=== PATIENT | female | born 2000 | race Caucasian/White ===

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

== ENCOUNTER 2018-04-08 16:47 | Emergency (ER) | payer OTHER ==
[2018-04-08] MEDS ORDERED: ONDANSETRON 4 MG/2 ML VIAL ONE (16:52)
--- NOTE | 2018-04-08 16:53 | EDPHY ---
HPI/HX/ROS/PE/MDM Narrative: CHIEF COMPLAINT: Overdose / Suicide attempt HISTORY OF PRESENT ILLNESS: This patient is a 17 y/o female with history of depression arriving via EMS following a suicide attempt by overdose of an unknown substance. The patient recently arrived home from studying abroad for the last year and recently began taking a new medication. Patient was discovered unresponsive with a suicide note at bedside. A loom technician is present with a copy of this note. On EMS arrival, the patient was unresponsive to painful stimuli with pinpoint pupils, RR 20, HR 100, BP 103/88, BGL 82. EMS administered 0.5mg Narcan with no change. After an additional 0.5mg Narcan, the patient became more responsive. The patient vomited upon her arrival here in the emergency department. Per EMS crews, there may be opioid medications in the patient's home of an unknown quantity. Her mother is en route to the emergency department at this time. REVIEW OF SYSTEMS: Unable to obtain due to patient presentation. PAST MEDICAL HISTORY: Depression. SOCIAL HISTORY: College student. Otherwise unknown social history. VITAL SIGNS: Reviewed by me GENERAL: Responsive to painful stimuli. HEENT: Atraumatic. Eyes: 5mm pupils, reactive. No icterus, no injection. No nystagmus. Mouth: moist mucous membranes. Positive gag reflex. No erythema or lesions. Neck: supple with no adenopathy. LUNGS: Clear to auscultation bilaterally, no wheezes, rhonchi or rales. CARDIAC: Regular tachycardia, no rubs, murmurs or gallops. ABDOMEN: Soft, nondistended, bowel sounds normal. BACK: No focal abnormalities. EXTREMITIES: No trauma. No edema. Passive range of motion is normal throughout. NEURO: Responsive to painful stimuli. Protecting herself with her arm. Moving all extremities. Turns head away from me. Gag reflex intact. SKIN: Warm and dry, no rash. PSYCHIATRIC: Unable to assess. Portions of this note were transcribed by a remote medical coder. I personally performed a history, physical exam, medical decision making, and confirmed accuracy of information the transcribed note. ED Course: 16:47 Met EMS at bedside 16:55 Mother at bedside. Patient had been recently prescribed medications for depression. When mother arrived home today, patient was sleeping. Mother noticed a suicide note on the bed. Medications in the home include Ambien, Oxycodone, Flexeril, Flagyl. Per patient's father, contacted by her mother on the phone, the patient recently picked up a prescription for Vyvanse from [facility]. Prescribed by Cristina Land. If the patient is on antidepressant it is unknown at this time. 17:40 patient noted to be intermittently tachycardic and somewhat hypotensive. Administered an additional 2mg IV Narcan. No change in the patient's condition or mentation. Patient's vitals otherwise stable currently. 18:30 Reassessed. Patient remains responsive to painful stimuli. She does not open her eyes to command. Patient has occasional contractures of her upper extremities, which seem to be associated with borderline hypotension and tachycardia. At this point her mother reports that she (the mother) had a prescription for 90 800 mg ibuprofen tablets of which she had taken none. Pill bottle is empty. Urine tox screen is positive only for amphetamines. Alcohol 44. Tylenol negative, salicylates negative, liver function tests normal, BUN and creatinine normal. 18:[address] Nowak, radiologist. CT head negative for acute processes. 19:00 Spoke with patient's mother. Plan to admit the patient. Patient seen by the hospitalist service, Dr. Cas Samson. Again the patient has had several episodes of tachycardia, hypotension, associated with stiffening of her upper extremities and patient does not withdrawal to painful stimuli when this is occurring. These last about 10-20 seconds. Concern for whether these are seizures. Additional labs include lactic acid of 2.7. Patient's QT is borderline prolonged. Repeat Chem 7 ordered. Serum osmoles ordered. 19:33 Consulted with Poison Control. Case #[id number] [facility] recommends continued observation, observed for renal insufficiency secondary to significant ibuprofen overdose, benzodiazepines as needed for any seizures, and to avoid Keppra at this time. Patient's syndrome felt to potentially be related to Ambien more so than overdose of ibuprofen. Patient's course discussed with Dr. Montalvo, [facility]. Patient to be transferred to [facility] via critical care. She will be admitted to the ICU for continuous EEG monitoring. Repeat labs drawn shortly before the patient's transfer demonstrated lactic acid is increasing, now 3.3 despite supportive care. Critical care time spent by me, Dr. Rivero exclusively with this patient was 45 minutes, exclusive of PA time and exclusive of procedures. The organ system at risk was neurologic and I gave IV fluids, Narcan, Ativan, consulted with poison Center, consult a Neurology, and obtain imaging studies to prevent worsening of the patients condition. Critical care time included obtaining history, performing a physical exam, bedside monitoring of interventions, collecting and interpreting tests and discussion with consultants but not including time spent performing procedures. Patient was transferred via critical care to [facility] for ongoing EEG monitoring. MDM: After the history was obtained and physical exam performed, the following differential for the patient's altered mental status was considered included but was not limited to alcohol intoxication, opiate overdose, antidepressant overdose, sedative overdose, hypoglycemia, electrolyte disturbances, intracranial hemorrhage, anoxic brain injury, tumor, stroke, or TIA. - Data Points Imaging Results: CT Head: Impression: 1. No significant intracranial abnormality seen. If symptoms worsen, additional imaging may be necessary. Findings discussed with Roxie Rivero MD at 18:41 hour, 04/08/2018. CXR: Impression: Normal chest x-ray. Dictated By: Shashank Nowak MD Imaging: Discussed imaging studies w/ train caller Radiologist Laboratory Results: Laboratory Results 04/08/18 16:50 04/08/18 20:12 Medications Given: Discontinued Medications Sodium Chloride (Ns) 1,000 mls @ 0 mls/hr IV ONCE ONE PRN Reason: Wide Open Stop: 04/08/18 16:57 Last Admin: 04/08/18 16:57 Dose: 1,000 mls Sodium Chloride (Ns) 1,000 mls @ 0 mls/hr IV ONCE ONE; Wide Open PRN Reason: Protocol Stop: 04/08/18 17:05 Last Admin: 04/08/18 17:53 Dose: 1,000 mls Levetiracetam 750 mg/ Sodium (Chloride) 50 mls @ 200 mls/hr IV BID ONE Stop: 04/08/18 19:42 Last Admin: 04/08/18 19:42 Dose: Not Given Magnesium Sulfate/Dextrose (Magnesium Sulf 1 Gm (Premix)) 100 mls @ 100 mls/hr IV ONCE ONE Stop: 04/08/18 20:27 Last Admin: 04/08/18 19:42 Dose: Not Given Sodium Chloride (Ns) 1,000 mls @ 0 mls/hr IV ONCE ONE PRN Reason: Wide Open Stop: 04/08/18 20:08 Last Admin: 04/08/18 20:20 Dose: 1,000 mls Lorazepam (Ativan Injection) 1 mg IVP EDNOW ONE Stop: 04/08/18 19:34 Last Admin: 04/08/18 19:42 Dose: 1 mg Naloxone HCl (Narcan) 2 mg IVP EDNOW ONE Stop: 04/08/18 17:38 Last Admin: 04/08/18 17:49 Dose: 2 mg Ondansetron HCl (Zofran) 4 mg IVP EDNOW ONE Stop: 04/08/18 16:57 Last Admin: 04/08/18 16:57 Dose: 4 mg General Initial Vital Signs: Initial Vital Signs Temperature (C) 36.2 C 04/08/18 16:55 Heart Rate 130 H 04/08/18 16:55 Respiratory Rate 14 04/08/18 16:55 Blood Pressure 106/50 L 04/08/18 16:55 O2 Sat (%) 98 04/08/18 16:55 O2 Delivery Mode Room Air Allergies/Adverse Reactions: Penicillins Allergy (Verified 04/08/18 18:41) Departure - Departure Disposition: [facility] Clinical Impression: Suicidal ideation Overdose Qualifiers: Encounter type: initial encounter Injury intent: intentional self-harm Qualified Code(s): T50.902A - Poisoning by unspecified drugs, medicaments and biological substances, intentional self-harm, initial encounter Altered mental status Qualifiers: Altered mental status type: somnolence Qualified Code(s): R40.0 - Somnolence Condition: Serious Referrals: Patient,NotPresent [Unknown] - As per Instructions Report Scribed for: Roxie Rivero Report Scribed by: Mariah Ferguson Date of Report: 04/08/18 Time of Report: 18:30
[2018-04-08] MEDS ORDERED: ONDANSETRON 4 MG/2 ML VIAL IVP ONE (16:56)
[2018-04-08] MEDS ORDERED: NS 1,000 ML IV ONE ×3 (16:56→20:07)
--- NOTE | 2018-04-08 17:00 | CPEKG ---
Heart Rate: 100 RR Interval: 600 P-R Interval: 204 QRSD Interval: 88 QT Interval: 384 QTC Interval: 496 P [place]: 19 QRS [place]: 56 T Wave [place]: 41 EKG Severity - ABNORMAL ECG - EKG Impression: SINUS TACHYCARDIA EKG Impression: PROLONGED QT INTERVAL Electronically Signed By: Frederick Holland 10-Apr-2018 08:59:30
[2018-04-08 17:20] LABS: PLATELET COUNT 333 10^3/uL (150-400)
[2018-04-08] MEDS ORDERED: NALOXONE HCL 0.4 MG/ML INJ IVP ONE (17:37)
[2018-04-08] MEDS ORDERED: NALOXONE HCL 2 MG/2 ML SYR IVP ONE (17:51)
[2018-04-08 18:33] LABS: INR 0.9 (0.83-1.16); PROTIME(PATIENT) 12.4 SEC (12.0-15.0)
[2018-04-08 18:47] LABS: CREATINE KINASE 263 IU/L (0-156)
[2018-04-08] MEDS ORDERED: MAGNESIUM SULF 1 GM/DEXTROSE 100 ML IV ONE (19:28)
[2018-04-08] MEDS ORDERED: levETIRAcetam 750 MG in NS (SYRINGE) 50 ML IV ONE (19:28)
[2018-04-08] MEDS ORDERED: MAGNESIUM SULF 1 GM/DEXTROSE 100 ML BAG IV ONE (19:32)
[2018-04-08] MEDS ORDERED: LORazepam 2 MG/ML INJ IVP ONE (19:33)
--- NOTE | 2018-04-08 19:42 | PDCONSULT ---
Orthophotography Technician Note: PCP: Dr. Colette Winn Primary Psychiatrist: Dr. Land CC: Acute encephalopathy HPI: 17 yo F p/w acute encephalopathy characterized as complete unresponsiveness. Patient was last seen at her baseline on the day prior to presentation, and she stayed overnight at a cabin [place] in the [facility], returning to her mother's home sometime after 12:30 p.m. On the day of presentation. [place] at her mother's house, and sometime between 12:30 p.m. And 5:00 p.m., the patient allegedly ingested unknown substances, although there are 2 empty bottles of ibuprofen 600-800mg, approximately 90 tabs were previously in each of these bottles, and there is also an empty bottle of Ambien 10 mg, unknown amount of tabs previously in the bottle. The patient also has a prescription for Vyvanse, and the bottle was not on her person when she was found by family, unresponsive. The patient's mother's pillbox which contains oxycodone, Flexeril, other medications, appears to be untouched. EMS was contacted, they administered a total of 1 mg of Narcan, with very minimal responsiveness. The patient reportedly had constricted pupils on evaluation and was demonstrating some posturing. There is also evidence that she may have vomited once prior to arrival. A suicide note was found on her person, which indicated that the patient felt tired, scared, sorry, and was intentionally attempting to end her life. This presentation occurs in the context of the patient recently returning from a year of studying abroad in [place]. The patient returned to [place] approximately 1 week ago, and was experiencing symptoms including lethargy, hopelessness, body-image anxiety, and reportedly had what her mother described as a full on anxiety attack on the day prior to presentation. Since the patient has a long history of depression and mental health issues, the patient' s family arranged for a psychiatry appointment during this past week, and she was prescribed Vyvanse 3 days prior to this presentation. The patient had been interacting with her brother, reportedly went rock climbing with him recently, did not engage in drinking alcohol or over ingest marijuana. The patient has reportedly been having some anxiety regarding an upcoming visit by her [place] boyfriend, particularly regarding herself image. She recently saw a videotape operator for some collagen treatment of old self-inflicted cut maldonado from many years ago. Otherwise, the patient's family have not noted any recent self- inflicted harm. Review of systems: Unresponsiveness, depression, anxiety, hopelessness, fatigue , all other 10 point review of systems are otherwise negative per family Past medical history: Depression, anxiety, previous cutting behavior, no previous suicide attempts, GI symptoms recently receiving outpatient workup her primary care provider office Past surgical history: None Home medications: Vyvanse x3 days, prior to that patient had been off of all mental health medications for approximately 1 year, and prior to that she had been on Pristiq Social history: Smokes marijuana regularly, alcohol very rarely, no other illegal drug use, recently returned to [place] from here studying abroad in [place] , prior to that the patient had been residing with her mother business information analyst, and prior to that her father, parents are , patient has a brother who lives locally Family history: Mother with reported suicide attempt, underlying anxiety and mental health issues, potentially bipolar, although she reports that this diagnosis was induced by behavioral health medications; no family history of sudden cardiac or seizure disorder Allergies: Penicillin induces rashes Physical exam: Systolic blood pressure initially 106, subsequently 86, heart rate 130, subsequently 90, respirations 14, SpO2 98% on 2 L nasal cannula, temperature 36.2 degrees General-alert awake oriented times 0, no apparent distress Neuro-2+ bilateral patellae reflexes, withdraws from painful stimuli, intermittent upper extremity posturing with muscular rigidity and seemingly unresponsive to painful stimuli during these moments, does not follow any commands Psych-unable to obtain secondary to encephalopathy Cardiac-tachycardic, regular rhythm, bounding pulse Resp-clear to auscultation bilaterally, no labored breathing Gastrointestinal-abdomen is nondistended, nontender, bowel sounds present Skin-no cut maldonado on the wrists or forearms Eyes-constricted pupils, paradoxical dilation with light, then constricted responsively Ear nose and throat-tacky mucous membranes, minimal secretions on the tongue Data: Anion gap 20, tox screen positive for amphetamines but negative for ASA/ Tylenol, alcohol levels 44, liver panel unremarkable, creatinine 0.9, serum bicarbonate 20, potassium 4.7, serum sodium 146, glucose 82, white blood cell count 9700, hemoglobin 14.1 Imaging: Head CT demonstrating no intracranial hemorrhage, EKG demonstrating sinus tachycardia with a QTC between 450 in 500 (personally interpreted) Outside records: 04/04/2018 laboratory values demonstrating celiac panel, IgG, IgA, all pending Assessment: 17-year-old female presenting with acute encephalopathy secondary to intentional polypharmacy overdose Plan: 1. Acute encephalopathy. Evidenced by global brain dysfunction characterized as unresponsiveness, only responsive to painful stimuli, no evidence of structural abnormality on head CT, suspect that the underlying etiology is a combination of polypharmacy and metabolic effects of acidosis, with anion gap of 20 -discussed with Dr. Roxie Rivero, she reports the patient has a gag reflex, the patient is currently saturating well on room air, patient does not require intubation at this time -that being said, the patient's dense encephalopathy with minimal responsiveness , and occasional posturing makes the possibility of subclinical seizures very difficult to grossly obtain based on physical observation, and the patient warrants continuous EEG monitoring for her own safety so that possible seizures can be appropriately treated with antiepileptic medications as well as IV benzodiazepines, which may require intubation given that it is anticipated she will experienced even deeper sedation with these medications -because the patient requires continuous EEG monitoring, I recommended to Dr. Rivero that the patient should be transferred to [facility] ICU -in the interim, the patient's intermittent posturing and concomitant tachycardia certainly seems suggestive of intermittent comma self-limited seizures, and we have agreed to administer Keppra 750 mg IV 1 time and gauge effect, pending this medication is advisable after Dr. Rivero' discussion with poison Control 2. Polypharmacy overdose. Acute, intentional, suicide attempt with suicide note has been obtained, patient is currently on M1 hold -if the patient has in fact taken upwards of 100 tabs of ibuprofen as well as Ambien, it is possible that she may be experiencing dense encephalopathic affects thereof as well as acidosis and QT prolongation -recommend that poison Control be notified immediately for further recommendations -as the ingestion was anywhere up to 5 hr prior to arrival, the utility of nasogastric tube and suctioning seems limited -monitor QT on telemetry -monitor anion gap -give 1 g of IV magnesium now -patient will require mental health evaluation after she is medically cleared 3. Hypernatremia. Acute, requiring IV fluids, continue to monitor 4. Suspected major depressive disorder. Recommend holding Vyvanse, mental health evaluation as above, notifying patient's mental health provider 60 min of critical care time spent with this patient and her family, at bedside , coordinating care with Dr. Roxie Rivero, specifically addressing the patient' s dense encephalopathy and polypharmacy overdose rendering her critically ill and at high risk of subclinical seizures, requiring emergent transfer to [facility] for continuous EEG and ICU monitoring.
[2018-04-08 20:39] VITALS: BP 105/33
--- NOTE | 2018-04-10 16:06 | CPEKG ---
Heart Rate: 98 RR Interval: 612 P-R Interval: 120 QRSD Interval: 86 QT Interval: 368 QTC Interval: 470 P [place]: 49 QRS [place]: 56 T Wave [place]: 32 EKG Severity - NORMAL ECG - EKG Impression: SINUS RHYTHM Electronically Signed By: Frederick Holland 10-Apr-2018 16:57:12
== END 2018-04-08 20:50 | disposition short-term general hospital (02) ==
LOC: EDUNIT#
DX: T50.902A Poisoning by unspecified drugs, medicaments and biological substances, intentional self-harm, initial encounter (principal); R40.0 Somnolence; E86.9 Volume depletion, unspecified
CPT/HCPCS: 80305; 96374; G0480; J2060; J2310; J2405; J3475

== ENCOUNTER 2018-04-12 06:09 | Inpatient (IN) | payer OTHER ==
[2018-04-12] MEDS ORDERED: ACETAMINOPHEN 325 MG TAB PO PRN (14:05)
[2018-04-12] MEDS ORDERED: MAGNESIUM HYDROXIDE 30 ML UDCUP PO PRN (14:05)
[2018-04-12] MEDS ORDERED: MAG HYDROX/AL HYDROX/SIMETH 30 ML UDCUP PO PRN (14:05)
--- NOTE | 2018-04-12 15:52 | BCON ---
[f rep st] BEHAVIORAL HEALTH CONSULTATION INTERNAL MEDICINE CONSULTATION DATE OF CONSULTATION: 04/12/2018 REFERRING PHYSICIAN: Barbara Hung MD REASON FOR REFERRAL: Medical clearance for inpatient behavioral health stay. HISTORY OF PRESENT ILLNESS: This patient presented to the [facility] Emergency Department on 04/08/2018, with altered mental status. She had overdosed on unknown substances. Hospital staff were concerned about possible subclinical seizures, so she was transferred to [facility] where continuous EEG monitoring can be done. There she was not noted to be seizing, and I believe she had a routine EEG which was negative for seizure abnormalities. So she was returned to [facility] for psychiatric care. She is currently without any acute complaints. PAST MEDICAL HISTORY: Depression. PAST SURGICAL HISTORY: She denies any history of surgeries. MEDICATIONS: She was prescribed control pill and Vyvanse. SOCIAL HISTORY: She is a student studying [employer]. She recently returned from a year abroad in [place]. She was a cigarette smoker when she was in [place], but has not smoked since she returned. She uses occasional alcohol. FAMILY HISTORY: Noncontributory. REVIEW OF SYSTEMS: A 10-point review of systems was conducted and was negative. PHYSICAL EXAM: VITAL SIGNS: Blood pressure is 123/80. Heart rate is 67. Respiratory rate is 14. Oxygen saturation is 96% on room air. Temperature is 36.8 degrees centigrade. Her weight is 65.8 kg for a body mass index of 22.7. GENERAL: This is a well-nourished, well-developed woman, appears her chronologic age, cooperative and in no acute distress. She is standing on the bed and dressed in street clothes. HEENT: Extraocular movements are intact. Pupils are equal, round, reactive to light. Mucous membranes are moist. Dentition is in good condition. She has an uncrowded airway, Mallampati class 2. NECK: Supple. HEART: There is a regular rate and rate and rhythm with no murmurs, rubs, or gallops. LUNGS: Clear to auscultation bilaterally. ABDOMEN : Benign. EXTREMITIES: There is no cyanosis, clubbing, or edema. NEUROLOGIC : She is alert and oriented x3. Cranial nerves 2-12 are grossly intact. There is no focal weakness. Sensation is intact to light touch, and gait is within normal limits. LABORATORY STUDIES: Drawn during her ED visit of 04/08/2018, CBC showed an elevated white blood cell count at 9.66, and there was a predominance of absolute lymphocytes, but there was no left shift. Coagulation studies revealed a normal PT and INR. Serum chemistry on 04/08, revealed an elevated sodium at 148, and she was hyperosmolar at 304. She also had a high chloride at 115. Carbon dioxide was low at 16. There was an anion gap of 17, which had improved from an anion gap of 20 earlier the same day. Otherwise, renal function and electrolytes were normal. Liver functions were normal. Creatine kinase was mildly elevated at 263, and labs otherwise were unremarkable. Serum toxicology screen revealed an ethyl alcohol level of 44 mg/dL and was negative for salicylates or acetaminophen, and urine toxicology screen was non-negative for amphetamines, but otherwise negative for substances of abuse. ASSESSMENT/RECOMMENDATIONS: 1. Mental health issues pending further evaluation and management per Psychiatry and the mental health team. 2. Intentional overdose. She appears to have come through with no lasting harm. 3. QT prolongation was seen on the 1st EKG done in the emergency room, but not on the subsequent EKG done several hours later. It was likely due to a substance that she had ingested, but would exercise some caution regarding psychiatric medications which might prolong QT interval. If these are indicated , advise a repeat EKG. I see no medical contraindications to this patient's continued stay on the inpatient behavioral health unit or to any psychiatric medications or procedures. Thank you very much for including me in the care of this patient and please do not hesitate to contact me or the hospitalist service should there be need for further medical evaluation. /[id number]/MODL MTDD
[2018-04-12] MEDS ORDERED: PNEUMOCOCCAL 0.5ML VACCINE VIAL (PNEUMOVAX 23) IM ONE (18:59)
[2018-04-13] MEDS: LORazepam 0.5 MG TAB PO PRN ×2 (00:23→22:22)
[2018-04-13] MEDS ORDERED: TRETINOIN TUBE PRN (14:03)
[2018-04-13] MEDS ORDERED: TRETINOIN TP PRN (14:41)
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
--- NOTE | 2018-04-14 14:42 | SOAPPROG ---
SOAP Progress Note Assessment/Plan: Assessment: 17 yo woman with h/o depression, self-harm behaviors, binge drinking, cannabis use and attention problems. She was admitted after OD on Ambien and ibuprofen requiring intubation. Patient had seizures post OD that have resolved. Plan: 04/14/18 14:34 1. MD left message with outpatient provider, Cristina Land, who is an integrative, family medicine CREDIT DEPARTMENT MANAGER. CC also called clinic and left 2 messages. Have not heard back from provider yet. 2. MD had lengthy conversations with Kera about possible depression medications. Initially patient wanted to take Pristiq again, but was worried that it would not be covered by her [facility]'s insurance. Then patient requested trial of Wellbutrin. MD provided patient with handouts about both medications so patient could learn about each one. MD answered patient's questions and explained r/b/se's for both meds. Patient eventually gave informed consent to start Wellbutrin XL. MD warned about increased risk of seizures as well as the black box warning for increased thoughts of suicide for patient's < 24 yo. 3. MD continues to recommend individual and group therapy to address patient's substance use, body image issues, family issues, academic stressors and relationship stressors (friends and boyfriend). However, patient said she was "not interested" in any kind of therapy. 4. Patient agrees to sign in voluntary when hold expires tomorrow. 5. Anticipate d/c on Tuesday once patient has completed her safety plan and has f /u appts. MD recommended f/u with a psychiatrist or psych np as well as a therapist. Patient is seeing 2 different primary care providers. She is getting Vyvanse from Cristina Land NP and sees Colette Hobson MD at [facility] for OCP. recommended seeing just one PCP and establishing care with a mental health specialist. Subjective: Met with patient reviewed chart and d/w staff. had lengthy conversations with Kera about possible depression medications. Initially patient wanted to take Pristiq again, but was worried that it would not be covered by her [facility]'s insurance. Then patient requested trial of Wellbutrin. MD provided patient with handouts about both medications so patient could learn about each one. MD answered patient's questions and explained r/b/se's for both meds. Patient eventually gave informed consent to start Wellbutrin XL. MD warned about increased risk of seizures as well as the black box warning for increased thoughts of suicide for patient's < 24 yo. MD continues to recommend individual and group therapy to address patient's substance use, body image issues, family issues, academic stressors and relationship stressors (friends and boyfriend). However, patient said she was "not interested" in any kind of therapy. Patient denies feeling sad, depressed, anxious, hopeless, helpless or worthless. She denies any SI/HI today. Objective: Vital Signs Temp Pulse Resp BP Pulse Ox 36.6 C 74 14 104/60 99 04/14/18 06:00 04/14/18 06:00 04/14/18 06:00 04/14/18 06:00 04/14/18 06:00 MSE:l Affect: Euthymic Mood: "OK" TP: Linear, goal-directed TC: Denies any SI /HI, no evidence of psychosis Insight/Judgment: Fair - Time Spent With Patient Time Spent With Patient: 25" - Pending Discharge Pending Discharge Within 24 Hours: No Pending Discharge Within 48 Hours: No ICD10 Worksheet Patient Problems: Problems Problem Status Onset Overdose Acute
[2018-04-15] MEDS: buPROPion XL 150 MG TAB PO SCH (08:41)
[2018-04-15] MEDS ORDERED: PRISTIQ 50 MG PO SCH (09:00)
--- NOTE | 2018-04-15 12:48 | SOAPPROG ---
SOAP Progress Note Assessment/Plan: Assessment: 17yo with hx of depression, self-harm and substance use (THC, binge EtOH) admitted s/p OD of Ambien and Ibuprofen 04/08/18 requiring ICU after intubation, txf to [facility] for seizure monitoring due to seizures post-OD (resolved), then return to [facility], admitted to inpt psych for stabilization. 04/15/18 15:44 slept 7.5hr. Recently started trial Wellbutrin XL. refer to Dr. Hartmann notes. Denied s/e. Talked some of her self-image issues, body image, depression with chronic SI, and binge eating then restricting, no purging. Also talked about relationship with her mother, who "seems to have her own issues", which patient is realizing. parents are and pt feels stuck in middle. Regarding OD, and SI/SA prior to admission, "Honestly, I feel like it's a good wake-up call for me...and those around me. It [suicide] was always in the back of my mind but I didn't think I'd actually try", and ultimately did so impulsively. Feels also she'd tried to ask others for help but "maybe they didn't realize" her level of distress. Now patient feels others understand better and have been more supportive. Also her best friend since kindergarten was initially "upset then mad that I almost left her". States she would feel comfortable asking for help from others- notably best friend, brother, and/or father- if any return of SI and not feeling safe. Also trying to set more limits with her mother, and "I'm starting to see her as a separate person [with her own issues]...", and not feel guilty. MSE: cooperative, good eye contact, engaging, nml speech vol/rate, mood "better, " affect appropriate range, linear thoughts, no psychosis, denied si/hi or any ah/vh. insight seems good, jdmgt seems fair/good, cognition intact. PLAN: -cont Wellbutrin XL 150mg QD. ensure insurance covers prior to d/c as this is pt concern -cont off Vyvanse. admitted using as an appetite suppressant. will need to let outpt prescriber Shanda know this. Not recommended at this time to restart, nor clearly indicated. -pt appreciated offer of dietary consult. states she always feels hungry and would like healthy eating recommendations. -plans f/u with PCP Cristina Land FARM REPORTER after d/c. -reluctant to start therapy, but will reconsider. would likely benefit from DBT , perhaps IOP -plans to stay with F more than M after d/c -agreed to sign in voluntarily. Objective: Vital Signs Temp Pulse Resp BP Pulse Ox 36.6 C 86 16 106/55 L 97 04/15/18 06:00 04/15/18 06:00 04/15/18 06:00 04/15/18 06:00 04/15/18 06:00 - Time Spent With Patient Time Spent With Patient: 35min - Pending Discharge Pending Discharge Within 24 Hours: No Pending Discharge Within 48 Hours: No ICD10 Worksheet Patient Problems: Problems Problem Status Onset Overdose Acute
[2018-04-16] MEDS: LORazepam 0.5 MG TAB PO PRN (01:18)
[2018-04-16] MEDS: buPROPion XL 150 MG TAB PO SCH (08:33)
--- NOTE | 2018-04-16 23:23 | SOAPPROG ---
SOAP Progress Note Assessment/Plan: Assessment: 17yo with hx of depression, self-harm and substance use (THC, binge EtOH) admitted s/p OD of Ambien and Ibuprofen 04/08/18 requiring ICU after intubation, txf to [facility] for seizure monitoring due to seizures post-OD (resolved), then return to [facility], admitted to inpt psych for stabilization. 04/15/18 15:44 slept 7.5hr. Recently started trial Wellbutrin XL. refer to Dr. Hartmann notes. Denied s/e. Talked some of her self-image issues, body image, depression with chronic SI, and binge eating then restricting, no purging. Also talked about relationship with her mother, who "seems to have her own issues", which patient is realizing. parents are and pt feels stuck in middle. Regarding OD, and SI/SA prior to admission, "Honestly, I feel like it's a good wake-up call for me...and those around me. It [suicide] was always in the back of my mind but I didn't think I'd actually try", and ultimately did so impulsively. Feels also she'd tried to ask others for help but "maybe they didn't realize" her level of distress. Now patient feels others understand better and have been more supportive. Also her best friend since kindergarten was initially "upset then mad that I almost left her". States she would feel comfortable asking for help from others- notably best friend, brother, and/or father- if any return of SI and not feeling safe. Also trying to set more limits with her mother, and "I'm starting to see her as a separate person [with her own issues]...", and not feel guilty. MSE: cooperative, good eye contact, engaging, nml speech vol/rate, mood "better, " affect appropriate range, linear thoughts, no psychosis, denied si/hi or any ah/vh. insight seems good, jdmgt seems fair/good, cognition intact. PLAN: -cont Wellbutrin XL 150mg QD. ensure insurance covers prior to d/c as this is pt concern -cont off Vyvanse. admitted using as an appetite suppressant. will need to let outpt prescriber Shanda know this. Not recommended at this time to restart, nor clearly indicated. -pt appreciated offer of dietary consult. states she always feels hungry and would like healthy eating recommendations. -plans f/u with PCP Cristina Land NP after d/c. -reluctant to start therapy, but will reconsider. would likely benefit from DBT , perhaps IOP -plans to stay with F more than M after d/c -agreed to sign in voluntarily. 04/16/18 15:39 slept 5hr. took prn Ativan around 1am has not been doing any exercise since MD last week recommended against this due to her her binge/restricting history (denies purging, and has used vyvanse to suppress appetite) has been doing yoga in room sometimes. has told [facility] staff depr is not much better, and still sometimes has SI on/off. BDI = 22 On interview, pt admits depressed still, hasn't noticed much benefit from Wellbutrin yet, "not a lot of mood change" but "focusing better", stating today she has been able to read and concentrate on what she was reading, which had been a problem before. slept a little less well last night. Notes she only cried once today (during interview) and 1st few days was crying much more often. Otherwise pt became easily tearful, t/a "overwhelmed" with prospect of upcoming d/c sometime early in week. Worried about work, no wants to go back b/c the "social scene" but feels no options. Pt would like a family meeting (offered this possibility to her, or could be with outpt txpst), ideally with both bio parents. Feels caught in middle, states F is emotionally supportive but would like her to work, states M would support her not working and rather going to therapy but wants F to pay for therapy... Main concerns- feels she must return to her work for $ reasons (and with guilt that parents support her and they are always arguing about money), hasn't been there in 9mo ( studied abroad), very worried about the "social scene" with many people she knows hanging around there and ex-boyfriend working across street, upset with her body image and feels she gained weight over the year she was away (becomes tearful), worried she won't be able to find different job b/c friend with unsuccessful job search (tearful again, b/c feels no options but to return to this job), also reluctant to f/u with therapy in outpt setting b/c of cost to parents. Parents are . Pt still feels caught in middle. Feels more guilt when they argue about finances and "who will pay" for pt's school etc. Pt t/w F and said he had agreed to pay for her to return to therapist she saw in [place] whom she really liked. Again notes concern about not seeing her too often b/c $. Doesn't think she's covered under their insurance. Admits she has occasional SI still occasionally coming and going, mainly when feeling overwhelmed, but no plan/intent. Just passive, "like, It would've been easier if it worked"..."I won't do it again because it's not fair to the people around me". Does feel overwhelmed thinking about return to everything after d/c. Denied med s/e. MSE: cooperative, good eye contact, engaging, nml speech vol/rate, mood "overwhelmed" and still admits depressed, affect restricted, tearful easily when t/a topics as noted above. linear thoughts, no psychosis, denied si/hi or any ah/vh. insight seems good, jdmgt seems fair, cognition intact. PLAN: -cont Wellbutrin XL 150mg for now. just started 2 d ago. No 200mg option. Also will need to check insurance coverage to ensure can get this after d/c -okay d/c SP-1. -pt wants to return to outpt therapist she saw in [place] States F agreed to pay for this. Arrange with f/u prior to D/C. Would like for pt to have weekly visits or biweekly for a period of time after d /c. Pt would benefit from developing and strengthening coping skills/strategies, and incr support for depr. Perhaps IOP at [facility]? -also ? if would be appropriate for referral to [facility] Llamas with her unspecified eating d/o issues and body image concerns. While in [place] her body concerns were less b/c felt more anonymous and less self -conscious -Pt feels a family meeting prior to d/c would be helpful with both bio parents present. -Complete safety plan -Establish with outpt psychiatrist. -Will need to let outpt prescriber Cristina Land MACHINE ROUGH ROUNDER know recommendation is not to resume Vyvanse -Prob d/c early in week after good d/c plan in place with f/u appts, crisis #s etc. 04/17/18 00:26 Objective: Vital Signs Temp Pulse Resp BP Pulse Ox 36.5 C 71 15 112/55 L 99 04/16/18 06:00 04/16/18 06:00 04/16/18 06:00 04/16/18 06:00 04/16/18 06:00 - Time Spent With Patient Time Spent With Patient: 45min - Pending Discharge Pending Discharge Within 24 Hours: No Pending Discharge Within 48 Hours: No ICD10 Worksheet Patient Problems: Problems Problem Status Onset Overdose Acute
[2018-04-17] MEDS ORDERED: hydrOXYzine HCL 25 MG TAB PO PRN (08:26)
--- NOTE | 2018-04-17 08:38 | SOAPPROG ---
SOAP Progress Note Assessment/Plan: Assessment: Major Depressive Disorder, recurrent severe without psychotic features Binge Eating Disorder S/P Overdose of mother's Ambien and OTC ibuprofen Patient reports continued low energy and reports severe sadness over weekend with tearfulness, but reports tolerating Wellbutrin and feeling somewhat improved this AM. Patient completed safety/wellness plan and appears future oriented this AM. Plan: Patient is voluntary Recheck BMP, TSH Discussed risks/benefits of Wellbutrin, including risk of defects, miscarriage, seizure, nausea, cristina, agitation, and worsening suicidal ideation Increase Wellbutrin XL 300mg QAM Schedule Melatonin 3mg QHS Hydroxyzine 12.5mg PO [id number] PRN anxiety/insomnia Possible discharge tomorrow if continued.consistent improvement Left message for PCP MEDICAL PATHOLOGY TEACHER Cristina Land [phone] 04/17/18 08:45 Subjective: CC: "Better" Patient reports feeling improved today with better concentration. Reports over past few days having continued low energy, hopelessness, and severe sadness. Reports struggling with these symptoms over over past 2 years with thoughts of and suicide. Reports Vyvanse was prescribed for binge eating disorder by PCP. Denies any history of racing thoughts, decreased need for sleep, grandiosity, severe agitation, severe irritability, or reckless behavior. 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 Reports adult brother in [facility] is a support and having several supportive friends. Reports goal is to 'feel better and have more energy' in order to work this summer and return to school in [place] in the fall. Reports goal of using yoga and hiking and talking to friends as coping skills. Denies any history of purging but reports binge eating. Reports past trial of Pristiq without clear benefit. Reports often taking Melatonin for sleep with benefit. Denies headache or nausea from Wellbutrin. Reports OD prior to admission involved OTC Ibuprofen and mothers Ambien. Reports mother abuses alcohol and is verbally abusive to her and would prefer to live with father after discharge. Complains of severe fatigue. Objective: Vital Signs Temp Pulse Resp BP Pulse Ox 36.4 C 67 16 98/54 L 97 04/17/18 06:00 04/17/18 06:00 04/17/18 06:00 04/17/18 06:00 04/17/18 06:00 Alert WF. Ambulatory without tremors. Speech RRR. Affect restricted, sad at times. Thoughts briefly organized with fair detail. Denies SI or HI or AH or paranoia. Cognition intact. Insight limited. Judgment questionable. Staff report patient slept 8 hours, attending most groups. Patient was dysphoric and tearful over the weekend but cooperative with staff and medications. - Time Spent With Patient Time Spent With Patient: 30 minutes - Pending Discharge Pending Discharge Within 24 Hours: Yes Pending Discharge Within 48 Hours: No Pending Discharge Date: 04/18/18 Pending Discharge Time: 11:00 ICD10 Worksheet Patient Problems: Problems Problem Status Onset Overdose Acute
[2018-04-17] MEDS: buPROPion XL 150 MG TAB PO SCH (09:18)
[2018-04-17] MEDS ORDERED: MELATONIN 3 MG TAB PO SCH (21:00)
[2018-04-18 06:44] VITALS: BP 109/63
[2018-04-18] MEDS: buPROPion XL 150 MG TAB PO SCH (08:32)
--- NOTE | 2018-04-18 13:49 | BDS ---
[f rep st] BEHAVIORAL HEALTH DISCHARGE SUMMARY IDENTIFICATION: This is a 17-year-old single white female who lives alternatively with her mother or her father here in the [place] area. She has never been , has no children. 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 REASON FOR ADMISSION: Please see initial psychiatric evaluation by Dr. Hartmann on April 13, 2018. The patient had overdosed on her mother's Ambien as well as over the counter ibuprofen and had drank a small amount of alcohol. She possibly had a seizure with altered mental status and had to be transferred to [facility] ICU to be monitored for seizures. The patient prior to that overdose had left a suicide note and had reported severe depression, concurrent with multiple arguments with her mother. The patient reported that her mother abused alcohol and was verbally abusive to her. The patient had been taking Vyvanse from her primary care provider for binge eating disorder and ADHD. She had overdosed on her mother's Ambien and [id number] ibuprofen. The patient was transferred back to [facility] and admitted to the inpatient psychiatric unit after brief hospitalization at [facility]. HOSPITAL COURSE: The patient initially reported symptoms of recurrent major depressive disorder plus binge eating disorder. The patient was agreeable to start Wellbutrin as an antidepressant and to stop Vyvanse which she had been taking previously. The patient was initially on an M1 hold but then agreed to be in the treatment on a voluntary basis. The patient had improvement. She was initially dysphoric and reported low energy, low activity, anhedonia and thoughts of and suicide. Through the course of hospitalization, she had an improvement in her affect. She became more future oriented, was able to identify numerous supports as well as reasons for living and coping skills. She reported remission of her suicidal thinking. She tolerated Wellbutrin XL 150 mg daily and then 300 mg. She had difficulty falling asleep some nights and staying asleep the night prior to discharge and took hydroxyzine 12.5 mg by mouth as a p.r.n. medication for sleep along with Melatonin 3mg. The patient was counseled about the risks of antidepressants causing bipolar disorder symptoms, agitation, irritability, racing thoughts, and increased suicidality as well as unclear safety in . The patient was also counseled about the risks of hydroxyzine causing sedation, weight gain, driving impairment, and defects. The patient on the unit was calm, euthymic, prior to discharge attending groups , eating well and had appropriate discharge planning. The patient's father visited the patient several times, was involved with discharge and was agreeable to monitor her medication compliance and assist her in getting followup treatment after discharge. The patient had no seizure activity or evidence of seizures during the course of the hospitalization and was counseled that the Wellbutrin could possibly increase the risk of seizures in the future. CONDITION ON DISCHARGE: She is an alert white female in no acute distress. She is ambulatory, cooperative and pleasant. She has no tremors or weakness. Her speech is regular rate and rhythm. Her mood is "pretty good." Her affect is euthymic. Her thoughts are organized. She denies any thoughts to hurt herself or others. She denies auditory hallucinations or paranoia. Her memory is good. Her insight is fair. Her judgment is appropriate. PROCEDURES: None. LABS PENDING: None. LAB RESULTS: Include sodium 143, potassium 4.5, creatinine 0.8, glucose 70, calcium 9.2. TSH 2.8. In the emergency department on April 08, she had alcohol level 44. Urine tox screen was positive for amphetamines and the patient had been taking Vyvanse. She also had normal liver function tests with AST 29, ALT 25, CK 263. Metabolic screening, the patient had a normal glucose of 70 and did not have risk factors for metabolic syndrome. ADVANCED DIRECTIVES: Patient declined advance directive. Nicotine and alcohol use disorder screen. The patient denied smoking cigarettes. She reported binge drinking alcohol in the past and was amnestic for the alcohol that she drank on the day of admission. She was counseled about the dangers of alcohol. She did not want medication or psychotherapy for alcohol use disorder after discharge. DISCHARGE DIAGNOSES: Major depressive disorder, recurrent, severe, without psychotic features Binge eating disorder Status post overdose of zolpidem and ibuprofen with altered consciousness. DISCHARGE MEDICATIONS: Wellbutrin XL 300 mg by mouth daily, Over the counter Melatonin 3mg by mouth at bedtime Hydroxyzine 12.5 mg by mouth at bedtime p.r.n. for insomnia, this is half of a 25 mg tablet. The prescriptions were for a 30 day supply with no refills. The patient has a primary care provider, nurse practitioner, Cristina Land, phone #[phone]. She has appointment next week. The patient was also connected with a therapist named Jessica Pierce, phone #[phone]. LEGAL STATUS: Patient was admitted on an M1 hold and agreed to stay voluntarily after that. DISPOSITION: The patient is leaving the unit with her friend and father. She was given a copy of her blood test results to take to her primary care provider. /[id number]/MODL MTDD
== END 2018-04-18 13:21 | disposition home or self-care (01) | DRG 885 ==
LOC: BBEH 12:25
PROVIDERS: ADMIT Psychiatry & Neurology Behavioral Neurology & Neuropsychiatry
DX: F33.2 Major depressive disorder, recurrent severe without psychotic features (principal); F50.81 Binge eating disorder; F90.9 Attention-deficit hyperactivity disorder, unspecified type; F10.10 Alcohol abuse, uncomplicated; F12.90 Cannabis use, unspecified, uncomplicated
CPT/HCPCS: G0009